=== PATIENT | male | born 1940 ===

== ENCOUNTER 2021-10-01 08:18 | Day surgery (SDC) | payer OTHER ==
[2021-09-27 12:47] LABS: Absolute Lymphocytes (CBC) 1.1 K/uL (0.7-4.9); Hematocrit 41.3 % (39.6-49.0); Lymphocytes % 24.4 % (15.3-44.8); MPV 7.5 fL (7.6-11.3); RBC Red Blood Cell Count 4.74 M/uL (4.33-5.43)
[2021-09-27 12:52] LABS: Protime INR 1.15
--- NOTE | 2021-09-27 12:53 | RAD REPORT ---
EXAM DESCRIPTION: Meng Freitas (2 Views)09/27/2021 12:20 pm CLINICAL HISTORY: Preop for bladder surgery COMPARISON: None FINDINGS: The lungs appear clear of acute infiltrate. The heart is normal size. Postsurgical change s involve the chest IMPRESSION: No acute abnormalities displayed
[2021-09-27 13:02] LABS: BUN Blood Urea Nitrogen 20 mg/dL (7-18); Bicarbonate 30 mmol/L (21-32); Glucose Level 103 mg/dL (74-106); Sodium Level 139 mmol/L (136-145)
[2021-09-27 16:06] LABS: Urine Appearance TURBID (Clear); Urine Color AMBER (Yellow); Urine Glucose NEGATIVE (Negative); Urine Specific Gravity >=1.030 (1.005-1.030)
[2021-09-27 16:07] LABS: Urine Bilirubin ND (Negative); Urine Blood 3+ (Negative); Urine Microscopic Reflex ORDER UMIC; Urine Protein 3+ (Negative); Urine Urobilinogen 0.2 mg/dL (0.2-1.0); Urine pH 5.5 (5.0-7.0)
[2021-09-27 16:08] LABS: Urine Bacteria <20 /HPF (NONE SEEN); Urine RBC TNTC /HPF (NONE SEEN)
--- NOTE | 2021-09-27 17:31 | EKG ---
Test Date: 2021-09-27 Test Time: 11:50:49 Occupational Therapy Professor: NIEVES MEASUREMENT RESULTS: Intervals: Rate: 68 GA: 196 QRSD: 88 QT: 382 QTc: 406 [place]: P: 69 GA: 196 QRS: -45 T: 34 INTERPRETIVE STATEMENTS: Sinus rhythm with occasional premature ventricular complexes Left axis deviation Abnormal ECG No previous ECG available for comparison Electronically Signed On 09-27-21 17:31:02 CDT by Mike Don
[2021-10-01] MEDS ORDERED: CEFAZOLIN/SWI 2gm 2 GM/20 ML SYR ONE (08:31)
[2021-10-01] MEDS ORDERED: Ringers Lactate 1,000 ML IV ONE (08:31)
[2021-10-01 09:01] VITALS: BP 144/81; TEMP 97.4; O2SAT 98
== END 2021-10-01 09:15 | disposition home or self-care (01) ==
LOC: OR 08:18
PROVIDERS: ATTEND Urology
DX: D49.4 Neoplasm of unspecified behavior of bladder (principal); Z53.09 Procedure and treatment not carried out because of other contraindication; Z20.822 Contact with and (suspected) exposure to COVID-19
CPT/HCPCS: 93005; 85025; 87086; 80048; 36415; 85610; 71046; U0003; J0690; J7120; 81003; 81015; 87088

== ENCOUNTER 2021-10-21 10:30 | Day surgery (SDC) | payer OTHER ==
[2021-10-21 11:07] LABS: Urine Appearance CLOUDY (Clear); Urine Bilirubin NEGATIVE (Negative); Urine Blood 3+ (Negative); Urine Color AMBER (Yellow); Urine Glucose NEGATIVE (Negative); Urine Microscopic Reflex ORDER UMIC; Urine Protein 2+ (Negative); Urine Specific Gravity >=1.030 (1.005-1.030); Urine Urobilinogen 0.2 mg/dL (0.2-1.0); Urine pH 5.5 (5.0-7.0)
[2021-10-21 11:10] LABS: Urine Bacteria 20-50 /HPF (NONE SEEN); Urine RBC >50 /HPF (NONE SEEN); Urine Yeast MANY (NONE SEEN)
[2021-10-21] MEDS ORDERED: Ringers Lactate 1,000 ML IV ONE (11:33)
[2021-10-21] MEDS ORDERED: FIDAXOMICIN 200 MG TABLET PO ONE (11:45)
[2021-10-21] MEDS ORDERED: FLUCONAZOLE 100 MG TAB PO ONE (12:00)
[2021-10-21] MEDS ORDERED: CEFAZOLIN/SWI 2gm 2 GM/20 ML SYR ONE (12:19)
[2021-10-21] MEDS ORDERED: propofoL 200 MG/20 ML VIAL IV ONE (12:41)
[2021-10-21] MEDS ORDERED: LIDOCAINE 1% MPF 5 ML VIAL ONE (12:41)
[2021-10-21] MEDS ORDERED: FENTANYL CITR 100 MCG/2 ML ONE (12:41)
[2021-10-21] MEDS ORDERED: dexAMETHasone 10 MG/ML VIAL ONE (13:33)
[2021-10-21] MEDS ORDERED: KETOROLAC 30 MG/ML INJ ONE (13:33)
[2021-10-21] MEDS ORDERED: ONDANSETRON 4 MG/2 ML VIAL ONE (13:44)
[2021-10-21 14:19] VITALS: O2SAT 99
[2021-10-21] MEDS ORDERED: PHENAZOPYRIDINE 100MG TAB PO ONE ×2 (14:25→15:18)
[2021-10-21] MEDS ORDERED: CODEINE 30MG/APAP 300MG TAB PO PRN (14:25)
[2021-10-21] MEDS ORDERED: CODEINE 30MG/APAP 300MG TAB ONE (15:18)
[2021-10-21 16:20] VITALS: BP 165/83; TEMP 97
--- NOTE | 2021-10-22 10:13 | OP ---
Surgeon: MORGAN HOROWITZ Preoperative Diagnoses: 1.Bladder tumor, 1.5-2 cm. 2.Gross hematuria. Postoperative Diagnoses: 1.Bladder tumor, 1.5-2 cm. 2.Gross hematuria. Procedures: 1.Transurethral resection of a bladder tumor. 2.Biopsy of the base of the tumor using cold cup forceps. 3.Urethral dilation using sounds. Indication For Procedure: Mr. De León presented to [facility] with gross hematuria and underwent cystoscopic evaluation identifying the presence of an approximately 1.5-2 cm papillary tumor emanati ng from the right anterior wall of his bladder. No other mucosal lesions were noted throughout his b ladder and no upper tract defects were noted on imaging. As a result, he was counseled on the need f or resection of the tumor and explained the potential risks that it may represent a bladder cancer. Procedure In Detail: The patient was consented in the preoperative holding area before being transfe rred to the operative suite where general anesthesia was induced. He was given Ancef 2 g IV antimicr obial prophylaxis and he had been previously given 200 mg of fluconazole for oral antifungal prophyla xis given fungus seen on his urinalysis performed preoperatively. Pneumoboots were provided for DVT prophylaxis. He was placed in the lithotomy position, padded and secured to the table appropriately. His genitalia were prepped using Hibiclens and he was draped in standard fashion. The case was beg un using urethral sounds to dilate the meatus and fossa navicularis to 30-[place]. Then using the 26- [place] bipolar resectoscope sheath and visual obturator, the urethra was traversed and the bladder en tered. I surveyed his bladder in its entirety, and the ureteral orifices were orthotopic in location . Initially, the bladder was decompressed of some bloody urine and was irrigated until clear. The r emainder of the bladder was surveyed, and was free of mucosal lesions, foreign bodies or stones excep t for in the right anterior wall of the bladder where the approximately 1.5-2 cm papillary tumor was noted. As a result, using the bipolar loop, I began resecting the tumor by whittling it down to its base where I then resected across the base in an effort to achieve muscle and ensure complete excisio n of the tumor. Once this was done, I fulgurated the edge of the tumor to quell any bleeding and the n replaced the bipolar loop with a cold cup forceps and took a biopsy of muscle within the base of th e tumor. These were sent for pathologic analysis as right anterior wall bladder tumor and base of tu mor. I then proceeded to fulgurate the entirety of the periphery of the tumor and the base of the tu mor in order to achieve complete hemostasis given his need for anticoagulant therapy. Once this was completed, I then irrigated his bladder free of circulating debris and potentially circulating tumor cells. Once clear, I then surveyed his prostatic fossa where there was a slight degree of ooze from the scope trauma given his prior TURP there, and I fulgurated some discrete bleeding sites within the prostatic fossa. I then decompressed his bladder completely and removed the resectoscope. The sara ent was then taken out of the lithotomy position, awakened from general anesthesia, transferred to a stretcher, and then transferred to the recovery room in good condition. Complications: None. Discharge Disposition: He should follow up in the Urology Clinic within the next 2-3 weeks to discus s the results of the pathology and to determine any next appropriate steps in the management of his s uspected new diagnosis of bladder cancer. ALONZO/KAUSHAL Voice ID: [id number] Report ID: [id number]
== END 2021-10-21 16:04 | disposition home or self-care (01) ==
LOC: OR 10:30
PROVIDERS: ATTEND Urology
PROC: 0TBB8ZX Excision of Bladder, Via Natural or Artificial Opening Endoscopic, Diagnostic (ICD-10-PCS; 2021-10-21)
PROC: 0TBB8ZX Excision of Bladder, Via Natural or Artificial Opening Endoscopic, Diagnostic (ICD-10-PCS; principal; 2021-10-21 12:30)
DX: C67.9 Malignant neoplasm of bladder, unspecified (principal); R31.0 Gross hematuria; I25.10 Atherosclerotic heart disease of native coronary artery without angina pectoris; I10 Essential (primary) hypertension; E78.00 Pure hypercholesterolemia, unspecified; Z95.1 Presence of aortocoronary bypass graft; I48.91 Unspecified atrial fibrillation; Z20.822 Contact with and (suspected) exposure to COVID-19
CPT/HCPCS: 87088; 87086; 88305; 88307; 52234; 52204; U0003; J2704; J3010; J1100; J0690; J7120; J2405; 81003; 81015; J8499